=== PATIENT | female | born 2000 | race Caucasian/White ===

== ENCOUNTER 2021-10-14 15:31 | Emergency (ER) | payer OTHER, MEDICAID, SELFPAY ==
[2021-10-14 15:46] VITALS: BP 122/76; PULSE 110; RESP 14; TEMP 37.2; O2SAT 99
--- NOTE | 2021-10-14 16:00 | ED.EAR ---
HPI - Ear Problem General Stated complaint: Ear Pain Time Seen by Provider: 10/14/21 16:00 Source: patient History of Present Illness HPI Narrative: PATIENT PRESENTS WITH RIGHT EAR PAIN NO DRAINAGE NO FEVER NO OTHER COMPLAINTS OF VOICED Review of Systems Review of Systems: CONSTITUTIONAL: Denies fever, chills, or sweats. EYES: Denies visual changes, redness, or discharge. ENT: Denies rhinorrhea, congestion, sore throat, or otalgia. CARDIOVASCULAR: Denies chest pain, palpitations, or edema. RESPIRATORY: Denies cough or dyspnea. GASTROINTESTINAL: Denies abdominal pain, nausea, vomiting, or diarrhea. GENITOURINARY: Denies dysuria or hematuria. SKIN: Denies rash or itching. MUSCULOSKELETAL: Denies back pain, joint pain, or myalgia. NEUROLOGIC: Denies headache, numbness, or weakness. PSYCHIATRIC: Denies anxiety or depression. PMFSH Comments At time of signature, agree with nursing past medical, surgical, social and family history. There is no relevant family history pertinent to the presenting complaint Exam Narrative: GENERAL: Well-appearing, well-nourished, and in no acute distress. HEAD: Normocephalic, atraumatic. EYES: PERRLA and EOMI. ENT: Nares clear, no rhinorrhea or epistaxis. Mucous membranes moist. Moderate amount of cerumen impacted in right ear. Scant amount of cerumen in left ear unable to visualize TMs due to cerumen impaction NECK: Supple. CHEST: Clear to auscultation. No respiratory distress. HEART: Regular rate and rhythm. No murmur heard. Normal peripheral pulses. ABDOMEN: Soft, nontender, nondistended, normal active bowel sounds. EXTREMITIES: Normal range of motion. No edema. SKIN: Warm, dry, no rash. NEURO: No focal deficits. Alert and oriented x3. [place] Coma Scale Eye Opening: Spontaneous 4 Mckay Coma Scale Motor: Obeys Commands 6 Mckay Coma Scale Verbal: Oriented 5 Mckay Coma Scale Total 15 Course Course Level of Care: Express Care Visit Vital Signs Vital signs: Vital Signs Temperature 37.2 C 10/14/21 15:46 Pulse Rate 110 H 10/14/21 15:46 Respiratory Rate 14 10/14/21 15:46 Blood Pressure 122/76 10/14/21 15:46 Pulse Oximetry 99 10/14/21 15:46 Temperature 37.2 C 02/12/22 15:46 Pulse Rate 110 H 10/14/21 15:46 Respiratory Rate 14 10/14/21 15:46 Blood Pressure 122/76 10/14/21 15:46 Pulse Oximetry 99 10/14/21 15:46 Critical dx considered and discussed with pt. Educated patient on red flag s/s and to go to ED if s/s occur. Discussed with pt when to return to [facility] or primary care provider. Pt gave verbal understanding, all questions were answered, and pt was agreeable to plan Instructed patient to use Debrox eardrops as prescribed to soften earwax Procedures Ear Wax Removal Both Ears: Ear Wax Removal Date: 10/14/21 Ear Wax Removal Time: 16:05 Results: Re-examined: removal reattempted Patient Tolerated Procedure: well Technique: ear canal curetted Additional Comments: CERUMEN IMPACTED. UNABLE TO REMOVE IMPACTED CERUMEN. WILL HAVE PATIENT USE DEBROX OVER THE COUNTER EAR DROPS AND FOLLOW UP WITH PCP NEEDED. Medical Decision Making Vital Signs Vital Signs: Vital Signs Temperature 37.2 C 10/14/21 15:46 Pulse Rate 110 H 10/14/21 15:46 Respiratory Rate 14 10/14/21 15:46 Blood Pressure 122/76 10/14/21 15:46 Pulse Oximetry 99 10/14/21 15:46 Temperature 37.2 C 10/14/21 15:46 Pulse Rate 110 H 10/14/21 15:46 Respiratory Rate 14 10/14/21 15:46 Blood Pressure 122/76 10/14/21 15:46 Pulse Oximetry 99 10/14/21 15:46 Critical Care Time Critical Care Time Critical Care Time: No Discharge Plan Discharge Clinical Impression: Bilateral impacted cerumen Patient Disposition: Home, Self-Care Condition: Stable Instructions: Antibiotic Form, Carbamide Peroxide (Into the ear) Additional Instructions: .earwax 1. Earwax naturally builds up and falls away on its own, but s
== END 2021-10-14 16:15 | disposition home or self-care (01) ==
PROVIDERS: Emergency Provider Nurse Practitioner Family
DX: H61.23 Impacted cerumen, bilateral (principal)
CPT/HCPCS: 69210; 99213; G0463